=== PATIENT | female | born 1965 | race Caucasian/White ===

== ENCOUNTER → 2018-07-06 10:30 | Outpatient (CLI) | payer MEDICARE, MEDICAID, SELFPAY ==
[2018-07-06 10:54] LABS: Add Manual Diff / Slide Review NO; Basophils Percent Auto 0.6 % (0-2); Eosinophils Percent Auto 1.9 % (2-4); Hematocrit 44.7 % (36-46); Hemoglobin 14.9 g/dL (12.0-16.0); Lymphocytes Percent Auto 23.2 % (25-40); Mean Corpuscular HGB Conc 33.4 % (30-36); Mean Corpuscular Hemoglobin 32.8 PG (26-34); Mean Corpuscular Volume 98.2 fL (80-100); Monocytes Percent Auto 6.1 % (3-14); Neutrophils Absolute Auto 3900 /uL (3000-5900); Neutrophils Percent Auto 68.2 % (50-75); Platelet Count 231 X10^3/uL (150-400); Red Blood Cell Count 4.55 X10^6/uL (4.0-5.2); Red Cell Distribution Width 14.1 % (11.6-14.8); White Blood Cell Count 5.8 X10^3/uL (4.5-11.0)
[2018-07-06 11:20] LABS: Alanine Aminotransferase 43 IU/L (9-52); Albumin 4.3 g/dL (3.5-5.0); Albumin Globulin Ratio 1.3 (1.0-2.8); Alkaline Phosphatase 179 U/L (38-126); Aspartate Aminotransferase 24 IU/L (14-36); Bilirubin Total 0.5 mg/dL (0.2-1.3); Blood Urea Nitrogen 12 mg/dL (7-17); Calcium 9.5 mg/dL (8.4-10.2); Carbon Dioxide 29 mmol/L (22-32); Chloride 102 mmol/L (98-107); Cholesterol 239 mg/dL (140-199); Estimated Glomerular Filt Rate > 60.0 mL/min (>60); Globulin 3.2 g/dL (1.7-4.1); Glucose 114 mg/dL (70-100); HEMOLYSIS < 15 (0-50); Phenytoin / Dilantin 4.9 ug/mL (10-20); Sodium 140 mmol/L (137-145); Total Protein 7.5 g/dL (6.3-8.2); Triglycerides 65 mg/dL (35-150)
[2018-07-06 11:28] LABS: Potassium 5.4 mmol/L (3.4-5.1)
[2018-07-06 11:29] LABS: HDL Cholesterol 123 mg/dL (40-60); LDL Cholesterol Calculated 103 mg/dL (<100)
== END ==
PROVIDERS: Family Provider Family Medicine; PCP Family Medicine; Visit Provider Student in an Organized Health Care Education/Training Program
DX: G40.802 Other epilepsy, not intractable, without status epilepticus (principal); F31.9 Bipolar disorder, unspecified; E78.5 Hyperlipidemia, unspecified
CPT/HCPCS: 36415; 80053; 80061; 80185; 85025

== ENCOUNTER → 2018-11-22 10:12 | Outpatient (CLI) | payer MEDICARE, MEDICAID, SELFPAY ==
--- NOTE | 2018-11-22 | DI.MG.S_ITS ---
BILATERAL DIGITAL SCREENING MAMMOGRAM 3D/2D WITH CAD: 11/22/2018 CLINICAL: Routine screening. Baseline exam. No prior exams were available for comparison. There are scattered fibroglandular elements in both breasts. Current study was also evaluated with a Computer Aided Detection (CAD) system. There are a grouped calcifications in the left breast at 5 o'clock anterior depth. There is possible architectural distortion associated with the calcifications. No other significant masses, calcifications, or other findings are seen in either breast. IMPRESSION: INCOMPLETE: NEEDS ADDITIONAL IMAGING EVALUATION The grouped calcifications in the left breast are indeterminate. Additional views with possible ultrasound are recommended. This exam was interpreted at Station ID: [id number]. NOTE: For mammograms, a report in lay terms will be sent to the patient. Approximately 15% of breast malignancies will not be visualized mammographically. In the management of a palpable breast mass, a negative mammogram must not discourage biopsy of a clinically suspicious lesion. Electronically Signed By: Yara Kinsey M.D. lk/:11/22/2018 12:19:19 letter sent: Additional Imaging Needed ACR BI-RADS Category 0: Incomplete [id number]
== END ==
PROVIDERS: PCP Student in an Organized Health Care Education/Training Program; Visit Provider Student in an Organized Health Care Education/Training Program
DX: Z12.31 Encounter for screening mammogram for malignant neoplasm of breast (principal)
CPT/HCPCS: 77063; 77067

== ENCOUNTER → 2018-12-01 08:28 | Outpatient (CLI) | payer MEDICARE, MEDICAID, SELFPAY ==
--- NOTE | 2018-12-01 | DI.US.S_ITS ---
LIMITED ULTRASOUND OF LEFT BREAST: 12/01/2018 CLINICAL: Patient returns today to evaluate a focal asymmetry in the left breast. Comparison is made to exams dated: 12/01/2018 mammogram and 11/22/2018 mammogram - [facility]. Color flow and real-time ultrasound of the left breast 2-6 o'clock region were performed. Green scale images of the real-time examination were reviewed. No underlying breast mass or abnormality is identified. There is no ultrasound correlate for the previously noted subcentimeter grouped calcifications in the lower outer left breast (described as being at 5 o'clock anterior depth on comparison screening mammogram). IMPRESSION: PROBABLY BENIGN No ultrasound correlate for the previously noted subcentimeter grouped calcifications in the lower outer left breast seen on screening and diagnostic mammography. A follow-up mammogram and possible ultrasound in 6 months is recommended to demonstrate stability. These results and recommendations were discussed with the patient at the time of the exam by Dr. Lopez in person. The patient was advised to monitor her breasts and to return sooner for re-evaluation should she feel anything grow or change. This exam was interpreted at Station ID: [id number]. Electronically Signed By: Donta Lopez M.D. ecl/:12/01/2018 09:46:05 letter sent: Followup Recommended Ultrasound BI-RADS: 3 Probably benign
--- NOTE | 2018-12-01 | DI.MG.S_ITS ---
UNILATERAL LEFT DIGITAL DIAGNOSTIC MAMMOGRAM 3D/2D WITH ADDITIONAL VIEWS: 12/01/2018 CLINICAL: Additional evaluation requested from prior study. Comparison is made [facility]. There are scattered fibroglandular elements in left breast. Previously noted subcentimeter grouped calcifications in the lower outer left breast (described as being at 5 o'clock anterior depth on comparison screening mammogram) are less prominent than on comparison screening mammogram, and has a linear coarse morphology that may represent early vascular calcification. These calcifications may have been exaggerated by 2D reconstruction artifact on the original exam. Previously noted possible associated architectural distortion resolves with additional views and likely represented superimposition of benign anatomic tissues. A subcentimeter asymmetry in the outer left breast at anterior middle depth seen only on the magnified LMCC view of diagnostic mammograms resolves with spot compression tomosynthesis views. IMPRESSION: INCOMPLETE: NEEDS ADDITIONAL IMAGING EVALUATION Previously noted subcentimeter grouped calcifications in the lower outer left breast (described as being at 5 o'clock anterior depth on comparison screening mammogram) is less prominent than on comparison screening mammogram. Previously noted possible associated architectural distortion resolves with additional views and likely represented superimposition of benign anatomic tissues. A targeted ultrasound is recommended and will be performed immediately following this exam. This exam was interpreted at Station ID: [id number]. NOTE: For mammograms, a report in lay terms will be sent to the patient. Approximately 15% of breast malignancies will not be visualized mammographically. In the management of a palpable breast mass, a negative mammogram must not discourage biopsy of a clinically suspicious lesion. Electronically Signed By: Donta Lopez M.D. ecl/:12/01/2018 09:47:49 letter sent: Additional Imaging Needed ACR BI-RADS Category 0: Incomplete 3340F
== END ==
PROVIDERS: PCP Student in an Organized Health Care Education/Training Program; Visit Provider Student in an Organized Health Care Education/Training Program
DX: R92.8 Other abnormal and inconclusive findings on diagnostic imaging of breast (principal); N64.89 Other specified disorders of breast
CPT/HCPCS: 76642; 77065; G0279

== ENCOUNTER 2019-01-03 12:15 | Day surgery (SDC) | payer MEDICARE, MEDICAID, SELFPAY ==
--- NOTE | 2019-01-03 | PATH_ITS ---
[facility] Accession Number: [id number] . 01 Material submitted: . colon - PROXIMAL RIGHT COLON MASS . 02 Diagnosis: Proximal Right Colon, Mass, Biopsies: Superficial fragments of tubulovillous adenoma. No evidence of malignancy or high-grade dysplasia. MRV/01/04/2019 . 02 Electronically signed: . Kerri Barnes MD, Pathologist NPI- [id number] . 01 Gross description: . PROXIMAL RIGHT COLON MASS: Received in formalin are multiple fragment(s) of mathew, soft tissue measuring 0.1 x 0.1 x 0.1 cm to 0.4 x 0.4 x 0.3 cm which is entirely submitted and submitted entirely in 1 cassette(s) /DMC /DMC . 02 Pathologist provided ICD-10: D12.6 . 02 CPT . 067593 Performed at: 01 [facility] [address] [facility], [place], [place] [id number] MD Momo Rodríguez MD Phone: [phone] Performed at: 02 [facility] [address] [place], [place] [id number] MD Kerri Barnes MD Phone: [phone]
[2019-01-03 12:59] VITALS: BP 154/93; PULSE 88; RESP 15; TEMP 36.1; O2SAT 94; BMI 42.7
[2019-01-03] MEDS: LACTATED RINGERS 1,000 ML 200 ML IV (12:59)
--- NOTE | 2019-01-03 13:53 | PM.PREOP ---
Pre-operative Note Interval Note History & Physical reviewed/Exam performed by Physician: Yes Changes to H&P: No H&P completed within 30 days and has changed as indicated here:: Pt noted she did not take her medications today although she was directed to do so.
[2019-01-03] MEDS: ALBUTEROL 2.5 MG/3 ML NEB (ADULT) INH (14:05)
[2019-01-03 15:15] VITALS: BP 115/67; PULSE 87; RESP 18; O2SAT 97
[2019-01-03 15:17] VITALS: BP 143/89; PULSE 85; RESP 18; TEMP 36.3; O2SAT 97
[2019-01-03 15:20] VITALS: BP 118/64; PULSE 84; RESP 18; O2SAT 98
--- NOTE | 2019-01-03 15:36 | PM.OP.ENDO ---
Operative Date/Time/Diagnoses Date of procedure: 01/03/19 Time of procedure: 15:37 Pre-op diagnosis: Need for screening colonoscopy Post-op diagnosis: same Procedure & Clinicians Study performed: Low Risk Screening Colonoscopy with Biopsy Same procedure as scheduled: Yes Indications: 53yo F with need for low risk screening colonscopy. Given her medical and social history we elected to use propofol sedation. Surgeon: Kait Cedeno Procedure Notes Procedure in detail: After obtaining informed consent, the patient was brought to the OR suite and induced to general anesthesia with an LMA in place. She was then placed in the left lateral decubitus position on the examination table. A time out was held per SCOAP protocol. A digital rectal examination was performed and did not reveal any masses or obstructing lesions. The colonoscope was gently passed into the patient's anus and the entire colon navigated to the level of the cecum with some difficulty due to some spasm of the colon early on as well as poor tolerance by patient who would waken and move frequently. Prep was adequate. Once in the cecum, the scope was slowly withdrawn being sure to go before and beyond all mucosal folds and prominences as able to get a thorough examination. A proximal R colon mass of around 3cm, semi-pedunculated, was noted. A biopsy was taken with a hot snare as we were unable to fully get around the fairly wide and flat base. Other findings include scattered small diverticula of the sigmoid colon. At the level of the rectal vault, the scope was retroflexed and the internal anal canal was examined. The scope was straightened and air aspirated from the colon. The instrument was removed from the patient's body and the procedure was concluded. The patient was allowed to awaken from sedation without difficulty and taken to the post-anesthesia care unit in good condition. Total anesthesia time is 49 min and withdrawal time >10 min. Findings: other findings (proximal R colon mass- 3cm) Specimen(s): other (biopsy of proximal R colon mass) Complications: none Impression: 1. small scattered diverticula 2. Proximal R colon mass- 3cm, semi-pedunculated Recommendations: Colonscopy in 1 year (pending path results) and High fiber diet Follow up: weeks (2 weeks) Disposition: PACU
[2019-01-03 15:46] VITALS: BP 120/74; PULSE 83; RESP 18; TEMP 36.6; O2SAT 94
== END 2019-01-03 16:21 | disposition home or self-care (01) ==
LOC: OR 12:16
PROVIDERS: PCP Student in an Organized Health Care Education/Training Program; Visit Provider Surgery
PROC: 0DJD8ZZ Inspection of Lower Intestinal Tract, Via Natural or Artificial Opening Endoscopic (ICD-10-PCS; CPT 45378; principal; 2019-01-03 13:45)
DX: Z12.11 Encounter for screening for malignant neoplasm of colon (principal); K57.30 Diverticulosis of large intestine without perforation or abscess without bleeding; D12.6 Benign neoplasm of colon, unspecified; F17.210 Nicotine dependence, cigarettes, uncomplicated; F41.9 Anxiety disorder, unspecified; F43.12 Post-traumatic stress disorder, chronic; I10 Essential (primary) hypertension; F33.9 Major depressive disorder, recurrent, unspecified; F41.0 Panic disorder [episodic paroxysmal anxiety]
CPT/HCPCS: 45380; 88305; 99152; 99153; J1100; J7613

== ENCOUNTER → 2019-05-31 11:11 | Outpatient (CLI) | payer MEDICARE, MEDICAID, SELFPAY ==
--- NOTE | 2019-05-31 | DI.RAD.S_ITS ---
PROCEDURE: XR KNEE RT 1TO2V INDICATIONS: KNEE PAIN TECHNIQUE: 2 views of the knee were acquired. COMPARISON: [facility], , KNEE 3V LEFT, 01/23/2013, 19:50. FINDINGS: Bones: No fractures or dislocations. No suspicious bony lesions. Mild to moderate medial femoral tibial compartment osteoarthritic changes are seen. Mild osteoarthritic changes also seen in patellofemoral compartment and lateral femorotibial compartment. Soft tissues: No joint effusion. No suspicious soft tissue calcifications. IMPRESSION: Xhwv-rj-wacsgbzh tricompartment osteoarthritis most prominent in the medial femoral tibial compartment. Dictated by: Hector Rm M.D. on 05/31/2019 at 12:09 Approved by: Hector Rm M.D. on 05/31/2019 at 12:11
--- NOTE | 2019-05-31 | DI.RAD.S_ITS ---
PROCEDURE: XR KNEE LT 1TO2V INDICATIONS: KNEE PAIN TECHNIQUE: 2 views of the knee were acquired. COMPARISON: [facility], , KNEE 3V LEFT, 01/23/2013, 19:50. FINDINGS: Bones: Mild to moderate medial femoral tibial compartment osteophytic changes are seen with joint space narrowing and subchondral sclerosis. No fractures or dislocations. No suspicious bony lesions. Soft tissues: No joint effusion. No suspicious soft tissue calcifications. IMPRESSION: Symj-po-fyyzjbut medial femoral tibial compartment osteoarthritis. Dictated by: Hector Rm M.D. on 05/31/2019 at 12:01 Approved by: Hector Rm M.D. on 05/31/2019 at 12:01
== END ==
PROVIDERS: PCP Student in an Organized Health Care Education/Training Program; Visit Provider Student in an Organized Health Care Education/Training Program
DX: M25.562 Pain in left knee (principal); M25.561 Pain in right knee; M17.0 Bilateral primary osteoarthritis of knee
CPT/HCPCS: 73560

== ENCOUNTER → 2019-11-20 14:43 | Outpatient (ROUT) | payer MEDICARE, MEDICAID, SELFPAY ==
[2019-11-20 14:52] LABS: Add Manual Diff / Slide Review NO; Basophils Absolute Auto 0 /uL (0-100); Basophils Percent Auto 0.3 % (0-2); Eosinophils Absolute Auto 0 /uL (0-450); Eosinophils Percent Auto 0.7 % (2-4); Hematocrit 42.2 % (36-46); Hemoglobin 14.6 g/dL (12.0-16.0); Lymphocytes Absolute Auto 1400 /uL (1100-4500); Lymphocytes Percent Auto 20.6 % (25-40); Mean Corpuscular HGB Conc 34.6 % (30-36); Mean Corpuscular Hemoglobin 33.5 PG (26-34); Mean Corpuscular Volume 96.9 fL (80-100); Monocytes Absolute Auto 300 /uL (0-900); Monocytes Percent Auto 4.3 % (3-14); Neutrophils Absolute Auto 5200 /uL (1500-7000); Neutrophils Percent Auto 74.1 % (50-75); Platelet Count 213 X10^3/uL (150-400); Red Blood Cell Count 4.35 X10^6/uL (4.0-5.2); Red Cell Distribution Width 14.2 % (11.6-14.8)
[2019-11-20 14:56] LABS: Alanine Aminotransferase 39 IU/L (<35); Albumin 4.2 g/dL (3.5-5.0); Albumin Globulin Ratio 1.3 (1.0-2.8); Alkaline Phosphatase 152 U/L (38-126); Aspartate Aminotransferase 36 IU/L (14-36); BUN Creatinine Ratio 17.5 (6-22); Bilirubin Total 0.4 mg/dL (0.2-1.3); Blood Urea Nitrogen 14 mg/dL (7-17); Calcium 9.1 mg/dL (8.4-10.2); Carbon Dioxide 27 mmol/L (22-32); Chloride 101 mmol/L (98-107); Cholesterol 199 mg/dL (140-199); Estimated Glomerular Filt Rate > 60.0 mL/min (>60); Globulin 3.3 g/dL (1.7-4.1); Glucose 98 mg/dL (70-100); HDL Cholesterol 106 mg/dL (40-60); HEMOLYSIS < 15 (0-50); LDL Cholesterol Calculated 75 mg/dL (<100); Phenytoin / Dilantin 10.1 ug/mL (10-20); Potassium 4.7 mmol/L (3.4-5.1); Sodium 137 mmol/L (137-145); Total Protein 7.5 g/dL (6.3-8.2); Triglycerides 88 mg/dL (35-150)
== END ==
PROVIDERS: PCP Student in an Organized Health Care Education/Training Program; Visit Provider Student in an Organized Health Care Education/Training Program
DX: G40.802 Other epilepsy, not intractable, without status epilepticus (principal); E78.5 Hyperlipidemia, unspecified; F31.9 Bipolar disorder, unspecified
CPT/HCPCS: 80053; 80061; 80185; 85025

== ENCOUNTER → 2019-12-04 13:12 | Outpatient (CLI) | payer MEDICARE, MEDICAID, SELFPAY ==
--- NOTE | 2019-12-04 | DI.MG.S_ITS ---
BILATERAL DIGITAL DIAGNOSTIC MAMMOGRAM 3D/2D SHORT-TERM FOLLOW-UP: 12/04/2019 CLINICAL: Patient returns for a 6 month follow up of the left breast, due for bilateral imaging. Comparison is made to exams dated: 12/01/2018 mammogram and 11/22/2018 mammogram - [facility]. There are scattered fibroglandular elements in both breasts. There are stable grouped fine calcifications in the left breast at 5 o'clock in the retroareolar region. No other significant masses, calcifications, or other findings are seen in either breast. IMPRESSION: PROBABLY BENIGN The stable grouped fine calcifications in the left breast are probably benign. A follow-up mammogram in 6 months is recommended to demonstrate stability. Exam findings and recommendation were conveyed to the patient by the Wireline Operator. This exam was interpreted at Station ID: [id number]. NOTE: For mammograms, a report in lay terms will be sent to the patient. Approximately 15% of breast malignancies will not be visualized mammographically. In the management of a palpable breast mass, a negative mammogram must not discourage biopsy of a clinically suspicious lesion. Electronically Signed By: Daryn Su M.D. slc/:12/04/2019 13:58:09 letter sent: Followup Recommended ACR BI-RADS Category 3: Probably benign [id number]
== END ==
PROVIDERS: PCP Student in an Organized Health Care Education/Training Program; Referring Provider Student in an Organized Health Care Education/Training Program; Visit Provider Student in an Organized Health Care Education/Training Program
DX: R92.8 Other abnormal and inconclusive findings on diagnostic imaging of breast (principal); R92.1 Mammographic calcification found on diagnostic imaging of breast
CPT/HCPCS: 77066; G0279

== ENCOUNTER 2020-09-19 05:05 | Emergency (ER) | payer MEDICARE, MEDICAID, SELFPAY ==
[2020-09-19 05:11] VITALS: BP 159/78; PULSE 99; RESP 16; TEMP 36.9; O2SAT 97; BMI 46.6
--- NOTE | 2020-09-19 05:14 | DI.RAD.S_ITS ---
PROCEDURE: XR RIBS LT MIN 3V W CXR1V INDICATIONS: fall onto left ribs. Pain. TECHNIQUE: 2 views of the left ribs were acquired, along with a single view chest. COMPARISON: None. FINDINGS: There are motion artifacts. Surgical changes and devices: None. Bones and chest wall: No fractures or dislocations. No suspicious bony lesions. Overlying soft tissues appear unremarkable. Lungs and pleura: No pleural effusions or pneumothorax. Lungs appear clear. Mediastinum: Mediastinal contours appear normal. Heart size is normal. IMPRESSION: No displaced rib fractures. No significant discrepancy with the general manager farm radiology preliminary report. Dictated by: Rafal Ch M.D. on 09/19/2020 at 8:38 Approved by: Rafal hC M.D. on 09/19/2020 at 8:38
--- NOTE | 2020-09-19 05:16 | PC.NURSE ---
bruising noted to left side of back along ribs. Tender to palpation. Denies SOB.
--- NOTE | 2020-09-19 05:48 | ED_ITS ---
HPI - Back Pain/Injury General Chief Complaint: Back Pain/Injury Stated Complaint: Fell and hurt back yesterday Time Seen by Provider: 09/19/20 05:25 Source: patient Mode of arrival: Ambulatory Limitations: no limitations History of Present Illness HPI Narrative: Patient is a 54-year-old female history of bipolar, anxiety depression presenting after a full and left-sided back pain. She says there is an industrial found outside the bedroom she tripped over it landing on it and a tree. EMS was called and picked her up last evening but she is having increasing pain in his seem to have a bruise. She has no numbness tingling or weakness. MD Complaint: back pain Onset (ago): hour(s) Duration: constant Similar Symptoms Previously: No Location: right flank Severity: moderate Quality: sharp Relieving factors: none Exacerbating factors: none Related Data Home Medications Medication Instructions Recorded Confirmed phenytoin sodium extended 100 mg See Rx Instructions .ROUTE .COMPLEX 08/17/18 08/13/20 capsule Previous Rx's Medication Instructions Recorded hydroxyzine HCl 25 mg tablet 75 mg PO BEDTIME PRN #90 tab 06/11/20 venlafaxine 75 mg capsule,extended 225 mg PO QAM #90 cap 06/11/20 release 24 hr Geodon 80 mg capsule 80 mg PO BID #60 cap NS 08/13/20 prazosin 5 mg capsule 5 mg PO BEDTIME #30 cap 08/13/20 trazodone 150 mg tablet See Rx Instructions PO BEDTIME #60 08/13/20 tab Allergies Allergy/AdvReac Type Severity Reaction Status Date / Time Sulfa (Sulfonamide AdvReac Severe Hives Verified 09/19/20 05:13 Antibiotics) [SULFA (SULFONAMIDE ANTIBIOTICS)] sulfamethoxazole AdvReac Severe Hives Verified 09/19/20 05:13 [From ] trimethoprim [From ] AdvReac Severe Hives Verified 09/19/20 05:13 Review of Systems Review of Systems Narrative: GENERAL: Denies chills, fatigue, malaise, fever, sweats, travel HEENT: Denies sinus pain, ear pain, sore throat, difficulty swallowing, neck pain RESPIRATORY: Denies dyspnea, cough, wheezing, hemoptysis, sputum. CARDIOVASCULAR: Denies chest pain, palpitations, orthopnea, edema GASTROINTESTINAL: Denies nausea, vomiting, abdominal pain, diarrhea, constipatio n, melena. : Denies dysuria, frequency, incontinence, hematuria, urinary retention, flank pain. MUSCULOSKELETAL: See HPI SKIN: No rash, no erythema, no pruritus NEUROLOGIC: Denies weakness, dizziness, headache, numbness, change in speech, confusion PSYCHIATRIC: No concerning psychosocial issues. 12 point review of systems is negative except for those stated above and HPI Patient History Medical History Anxiety Bipolar 1 disorder Depression HTN (hypertension) Panic attacks PTSD (post-traumatic stress disorder) Surgical History H/O hernia repair H/O tubal ligation (~1995) H/O umbilical hernia repair History of section, classical Status post tubal ligation Social History marital status: household members: spouse occupational status: disabled Smoking Status: Current every day smoker alcohol intake: current substance use type: does not use Smoking Status: Current every day smoker alcohol intake frequency: 3 or more drinks per day Substance Use Type: does not use Exam Initial Vital Signs Initial Vital Signs: Vital Signs Temperature 98.4 F 09/19/20 05:11 Pulse Rate 99 H 09/19/20 05:11 Respiratory Rate 16 09/19/20 05:11 Blood Pressure 159/78 H 09/19/20 05:11 Pulse Oximetry 97 09/19/20 05:11 GENERAL: Overweight well-appearing 54-year-old and in no acute distress. HEENT: Head atraumatic,EOMI, pupils reactive, face symmetric, moist mucous membranes CARDIOVASCULAR: Regular rate and rhythm without murmurs, rubs or gallops. RESPIRATORY: Breath sounds equal bilaterally, no wheezes rales or rhonchi. BACK: No vertebral tenderness, contusion seen on right flank area EXTREMITIES: Normal range of motion, no clubbing or edema. Neurovascularly intact NEUROLOGICAL: Alert and oriented x4.Normal gait and speech. SKIN: Warm, dry, no laceration, no petechiae, no rashes or lesions. Course Orders Ordered: ED Orders 09/19/20 05:14 XR ribs LT min 3V w CXR1V Stat Vital Signs Vital signs: Vital Signs - 8 hr 09/19/20 05:11 Temperature 98.4 F Pulse Rate 99 H Respiratory Rate 16 Blood Pressure 159/78 H Pulse Oximetry 97 MDM - Back Pain/Injury Imaging Data Chest x-ray: Radiologist's Impression: No acute cardiopulmonary abnormality. No rib fracture identified Discharge Plan Departure Patient Disposition: Home Clinical Impression: Contusion Qualifiers: Encounter type: initial encounter Contusion area: lower back Qualified Code(s): S30.0XXA - Contusion of lower back and pelvis, initial encounter Instructions: Contusion Activity Restrictions/Additional Instructions: *You have been diagnosed with contusion back pain *What to do: increase activity as tolerated. Ice 20 minutes at a time. *Continue to take medications as directed Motrin 600mg every 6-8 hours if needed *Follow up with your primary care provider in 2-3 days *Return to ER if you should have worsening pain, weakness, numbness, tingling or any new, worsening or concerning symptoms Prescriptions: No Action prazosin 5 mg capsule 5 mg PO BEDTIME Qty: 30 RF: 5 phenytoin sodium extended [Dilantin Extended] 100 mg capsule See Rx Instructions .ROUTE .COMPLEX RF: 0 venlafaxine 75 mg capsule,extended release 24hr 225 mg PO QAM Qty: 90 RF: 5 hydroxyzine HCl 25 mg tablet 75 mg PO BEDTIME PRN (Reason: insomnia) Qty: 90 RF: 5 ziprasidone HCl [Geodon] 80 mg capsule 80 mg PO BID Qty: 60 RF: 5 trazodone 150 mg tablet See Rx Instructions PO BEDTIME Qty: 60 RF: 5 Referrals: Layne Osorio PA-C [Primary Care Provider] -
== END 2020-09-19 06:00 | disposition home or self-care (01) ==
PROVIDERS: Emergency Provider Emergency Medicine; PCP Student in an Organized Health Care Education/Training Program
DX: S30.0XXA Contusion of lower back and pelvis, initial encounter (principal); W19.XXXA Unspecified fall, initial encounter; I10 Essential (primary) hypertension; F41.9 Anxiety disorder, unspecified; F31.9 Bipolar disorder, unspecified; F43.10 Post-traumatic stress disorder, unspecified; E66.3 Overweight; Z68.42 Body mass index [BMI] 45.0-49.9, adult
CPT/HCPCS: 71101; 99283

== ENCOUNTER → 2021-01-03 08:26 | Outpatient (CLI) | payer MEDICARE, MEDICAID, SELFPAY ==
[2021-01-03 10:04] LABS: Add Manual Diff / Slide Review NO; Basophils Absolute Auto 0 /uL (0-100); Basophils Percent Auto 0.5 % (0-2); Eosinophils Absolute Auto 100 /uL (0-450); Eosinophils Percent Auto 1.3 % (2-4); Hematocrit 42.1 % (36-46); Hemoglobin 14.3 g/dL (12.0-16.0); Lymphocytes Absolute Auto 1500 /uL (1100-4500); Lymphocytes Percent Auto 27.8 % (25-40); Mean Corpuscular HGB Conc 34.1 % (30-36); Mean Corpuscular Hemoglobin 34.3 PG (26-34); Mean Corpuscular Volume 100.7 fL (80-100); Monocytes Absolute Auto 400 /uL (0-900); Monocytes Percent Auto 6.7 % (3-14); Neutrophils Absolute Auto 3500 /uL (1500-7000); Neutrophils Percent Auto 63.7 % (50-75); Platelet Count 203 X10^3/uL (150-400); Red Blood Cell Count 4.18 X10^6/uL (4.0-5.2); Red Cell Distribution Width 14.2 % (11.6-14.8); White Blood Cell Count 5.5 X10^3/uL (4.5-11.0)
[2021-01-03 10:37] LABS: Alanine Aminotransferase 23 IU/L (<35); Albumin 3.8 g/dL (3.5-5.0); Albumin Globulin Ratio 1.2 (1.0-2.8); Alkaline Phosphatase 199 U/L (38-126); Aspartate Aminotransferase 24 IU/L (14-36); BUN Creatinine Ratio 15.4 (6-22); Bilirubin Total 0.4 mg/dL (0.2-1.3); Blood Urea Nitrogen 12 mg/dL (7-17); Calcium 9.2 mg/dL (8.4-10.2); Carbon Dioxide 28 mmol/L (22-32); Chloride 105 mmol/L (98-107); Cholesterol 222 mg/dL (140-199); Estimated Glomerular Filt Rate > 60.0 mL/min (>60); Globulin 3.2 g/dL (1.7-4.1); Glucose 117 mg/dL (70-100); HEMOLYSIS < 15 (0-50); Phenytoin / Dilantin 12.3 ug/mL (10-20); Potassium 4.8 mmol/L (3.4-5.1); Sodium 138 mmol/L (137-145); Triglycerides 73 mg/dL (35-150)
[2021-01-03 10:43] LABS: HDL Cholesterol 148 mg/dL (40-60); LDL Cholesterol Calculated 59 mg/dL (<100)
== END ==
PROVIDERS: PCP Student in an Organized Health Care Education/Training Program; Referring Provider Student in an Organized Health Care Education/Training Program; Visit Provider Student in an Organized Health Care Education/Training Program
DX: G40.802 Other epilepsy, not intractable, without status epilepticus (principal); E78.5 Hyperlipidemia, unspecified
CPT/HCPCS: 36415; 80053; 80061; 80185; 85025

== ENCOUNTER → 2023-09-08 12:41 | Outpatient (CLI) | payer MEDICARE, MEDICAID, SELFPAY ==
--- NOTE | 2023-09-08 | DI.MG.S_ITS ---
BILATERAL DIGITAL SCREENING MAMMOGRAM 3D/2D WITH CAD: 09/08/2023 CLINICAL: Routine screening. Comparison is made to exams dated: 12/04/2019 mammogram, 12/01/2018 mammogram, and 11/22/2018 mammogram - [facility]. There are scattered areas of fibroglandular density in both breasts (category b / 25%-50% glandular tissue). Current study was also evaluated with a Computer Aided Detection (CAD) system. No significant masses, calcifications, or other findings are seen in either breast. There has been no significant interval change. IMPRESSION: NEGATIVE There is no mammographic evidence of malignancy. A 1 year screening mammogram is recommended. Based on the Tyrer Cuzick model (a risk assessment model) the patient's lifetime risk is 6.2% and her 10 year risk is 2.1%. According to the ACR, ACS, and NCCN guidelines, an annual breast MRI exam along with mammogram is recommended if the patient's lifetime risk is 20% or greater. This exam was interpreted at Station ID: [id number]. NOTE: For mammograms, a report in lay terms will be sent to the patient. Approximately 15% of breast malignancies will not be visualized mammographically. In the management of a palpable breast mass, a negative mammogram must not discourage biopsy of a clinically suspicious lesion. Electronically Signed By: oJhn guzman/thais:09/08/2023 13:57:27 letter sent: Normal Exam ACR BI-RADS Category 1: Negative [id number]
== END ==
PROVIDERS: PCP Physician Assistant; Referring Provider Physician Assistant; Visit Provider Physician Assistant
DX: Z12.31 Encounter for screening mammogram for malignant neoplasm of breast (principal)
CPT/HCPCS: 77063; 77067

== ENCOUNTER → 2023-10-14 09:02 | Outpatient (CLI) | payer MEDICARE, MEDICAID, SELFPAY ==
[2023-10-14 10:07] LABS: Add Manual Diff / Slide Review NO; Basophils Absolute Auto 0 /uL (0-100); Basophils Percent Auto 0.6 % (0-2); Eosinophils Absolute Auto 200 /uL (0-450); Eosinophils Percent Auto 2.8 % (2-4); Hematocrit 40.9 % (36-46); Lymphocytes Absolute Auto 2100 /uL (1100-4500); Lymphocytes Percent Auto 36.1 % (25-40); Mean Corpuscular HGB Conc 34.3 % (30-36); Mean Corpuscular Hemoglobin 31.8 PG (26-34); Mean Corpuscular Volume 92.9 fL (80-100); Monocytes Absolute Auto 400 /uL (0-900); Monocytes Percent Auto 5.9 % (3-14); Neutrophils Absolute Auto 3200 /uL (1500-7000); Neutrophils Percent Auto 54.6 % (50-75); Platelet Count 247 X10^3/uL (150-400); Red Cell Distribution Width 13.8 % (11.6-14.8); White Blood Cell Count 5.9 X10^3/uL (4.5-11.0)
[2023-10-14 10:23] LABS: Alanine Aminotransferase 15 IU/L (<35); Albumin 3.8 g/dL (3.5-5.0); Albumin Globulin Ratio 1.1 (1.0-2.8); Alkaline Phosphatase 114 U/L (38-126); Aspartate Aminotransferase 16 IU/L (14-36); BUN Creatinine Ratio 14.4 (6-22); Bilirubin Total 0.4 mg/dL (0.2-1.3); Blood Urea Nitrogen 15 mg/dL (7-17); Calcium 9.3 mg/dL (8.4-10.2); Carbon Dioxide 30 mmol/L (22-32); Chloride 102 mmol/L (98-107); Cholesterol 208 mg/dL (140-199); Estimated Glomerular Filt Rate > 60 mL/min (>60); Globulin 3.4 g/dL (1.7-4.1); Glucose 110 mg/dL (70-100); HDL Cholesterol 72 mg/dL (40-60); HEMOLYSIS < 15 (0-50); LDL Cholesterol Calculated 112 mg/dL (<100); Potassium 4.4 mmol/L (3.4-5.1); Sodium 139 mmol/L (137-145); Total Protein 7.2 g/dL (6.3-8.2); Triglycerides 121 mg/dL (35-150)
[2023-10-14 10:55] LABS: Thyroid Stimulating Hormone 3.27 uIU/mL (0.47-4.68)
[2023-10-14 12:02] LABS: Hemoglobin A1C% w Est Avg Glu 5.5 % (4.0-6.0)
== END ==
PROVIDERS: PCP Physician Assistant; Referring Provider Psychiatry & Neurology Psychiatry; Visit Provider Psychiatry & Neurology Psychiatry
DX: F31.81 Bipolar II disorder (principal); F43.12 Post-traumatic stress disorder, chronic; G47.00 Insomnia, unspecified; Z79.899 Other long term (current) drug therapy
CPT/HCPCS: 36415; 80053; 80061; 83036; 84443; 85025; 99214